=== PATIENT | female | born 1965 | race Caucasian/White ===

== ENCOUNTER 2024-08-13 07:21 | Emergency (ER) | payer BC, OTHER ==
[2024-08-13 07:46] VITALS: TEMP 98.8
--- NOTE | 2024-08-13 07:48 | ERPHSYRPT ---
- History of Present Illness Time Seen by Provider: 08/13/24 07:24 Historian: patient Exam Limitations: no limitations Patient Subjective Stated Complaint: Abdominal pain Triage Nursing Assessment: Abdominal pain Physician History: Patient states that she had a left lower quadrant abdominal pain last week it went away. Today morning it came back. It was 6 out of 10 when it came but right now it is only 3 out of 10. I do not need anything for pain. Patient says that I had a similar episodes 10 years ago. I never saw a doctor. Patient denies any fever or chills. Has mild nausea but no vomiting or diarrhea. No bleeding in the stool or anywhere else. Patient says that I have history of arrhythmia and I take a metoprolol for that. No urinary symptoms. Timing/Duration: today Activities at Onset: none Quality: cramping Abdominal Pain Onset Location: LLQ Pain Radiation: no radiation Severity of Pain-Max: moderate Severity of Pain-Current: mild Modifying Factors: Improves With: nothing Associated Symptoms: nausea, No chest pain, No diaphoresis, No diarrhea, No shortness of breath Previous symptoms: same symptoms as today Allergies/Adverse Reactions: Sulfa (Sulfonamide Antibiotics) Allergy (Verified 08/13/24 07:36) Home Medications: Duloxetine HCl 30 mg [Cymbalta 30 MG Capsule] 60 mg PO DAILY 08/13/24 [History] Metoprolol Succinate 50 mg [Toprol Xl 50 MG] 50 mg PO HS 08/13/24 [ History] - Review of Systems Constitutional: No Fever, No Chills Eyes: No Symptoms Ears, Nose, & Throat: No Symptoms Respiratory: No Cough, No Dyspnea Cardiac: No Chest Pain, No Edema, No Syncope Abdominal/Gastrointestinal: Abdominal Pain, Nausea, No Vomiting, No Diarrhea Genitourinary Symptoms: No Dysuria Musculoskeletal: No Back Pain, No Neck Pain Skin: No Rash Neurological: No Dizziness, No Focal Weakness, No Sensory Changes Psychological: No Symptoms Endocrine: No Symptoms All Other Systems: Reviewed and Negative - Past Medical History Pertinent Past Medical History: Yes - Nursing Vital Signs Nursing Vital Signs: Initial Vital Signs Temperature 98.8 F 08/13/24 07:30 Pulse Rate 70 08/13/24 07:30 Respiratory Rate 18 08/13/24 07:30 Blood Pressure 139/83 08/13/24 07:30 O2 Sat by Pulse Oximetry 97 08/13/24 07:30 Pain Scale Pain Intensity 0 - Physical Exam General Appearance: no apparent distress, alert Eye Exam: PERRL/EOMI, eyes nml inspection Ears, Nose, Throat Exam: normal ENT inspection, pharynx normal, moist mucous membranes Neck Exam: normal inspection, non-tender, supple, full range of motion Respiratory Exam: normal breath sounds, lungs clear, No respiratory distress Cardiovascular Exam: regular rate/rhythm, normal heart sounds Gastrointestinal/Abdomen Exam: soft, normal bowel sounds, No tenderness, No mass, No pulsatile mass, No rebound, No hernia Back Exam: normal inspection, normal range of motion, No CVA tenderness, No vertebral tenderness Extremity Exam: normal inspection, normal range of motion, pelvis stable Neurologic Exam: alert, oriented x 3, cooperative, normal mood/affect, nml cerebellar function, sensation nml, No motor deficits Skin Exam: normal color, warm, dry - Course Nursing assessment & vital signs reviewed: Yes - CT Exams Abdomen/Pelvis CT Interpretation: Other (Constipation. Nothing acute) Ordered Tests: Active Orders 24 hr Category Date Time Status ABDOMEN AND PELVIS W CONTRAST [CT] Stat Exams 08/13/24 07:50 Completed CBC W DIFF Stat Lab 08/13/24 08:15 Completed CMP Stat Lab 08/13/24 08:15 Completed LIPASE Stat Lab 08/13/24 08:15 Completed UA W/RFX UR CULTURE Stat Lab 08/13/24 09:15 Completed Lab/Rad Data: Laboratory Result Diagrams 08/13/24 08:15 08/13/24 08:15 Laboratory Results 08/13/24 08/13/24 08/13/24 Range/Units 09:15 08:15 08:15 WBC 7.7 (3.98-10.04) x10^3/uL RBC 4.63 (3.93-5.22) x10^6/uL Hgb 14.2 (11.2-15.7) g/dL Hct 42.4 (34.1-44.9) % MCV 91.6 (79.4-94.8) fL MCH 30.7 (25.6-32.2) pg MCHC 33.5 (32.2-35.5) g/dL RDW 13.5 (11.7-14.4) % Plt Count 379 H (182-369) x10^3/uL MPV 9.8 (9.4-12.3) fL Gran % 69.6 (34.0-71.1) % Immature Gran % (Auto) 0.8 H (0.001-0.429) % Nucleat RBC Rel Count 0.0 (0.00-0.2) % Eos # (Auto) 0.36 (0.04-0.36) x10^3/uL Immature Gran # (Auto) 0.06 H (0.001-0.031) x10^3u/L Absolute Lymphs (auto) 1.33 (1.18-3.74) x10^3/uL Absolute Monos (auto) 0.50 (0.24-0.86) x10^3/uL Absolute Nucleated RBC 0.00 (0.00-0.012) x10^3u/L Lymphocytes % 17.4 L (19.3-51.7) % Monocytes % 6.5 (4.7-12.5) % Eosinophils % 4.7 (0.7-5.8) % Basophils % 1.0 (0.1-1.2) % Absolute Granulocytes 5.33 (1.56-6.13) x10^3/uL Basophils # 0.08 (0.01-0.08) x10^3/uL Sodium 136 (135-145) mmol/L Potassium 4.1 (3.5-5.1) mmol/L Chloride 105 (98-107) mmol/L Carbon Dioxide 25 (22-30) mmol/L Anion Gap 10.1 (5-15) MEQ/L BUN 15 (7-17) mg/dL Creatinine 0.82 (0.52-1.04) mg/dL Estimated GFR 81.8 ML/MIN Glucose 113 H (74-106) mg/dL Calcium 8.9 (8.4-10.2) mg/dL Total Bilirubin 0.50 (0.2-1.3) mg/dL AST 42 H (14-36) U/L ALT 77 H (0-35) U/L Alkaline Phosphatase 54 (38-126) U/L Serum Total Protein 6.7 (6.3-8.2) g/dL Albumin 3.8 (3.5-5.0) g/dL Lipase 69 (23-300) U/L Urine Color Yellow (Yellow) Urine Appearance Clear (Clear) Urine pH 6.5 (4.6-8.0) Ur Specific [place] <=1.005 (1.005-1.030) Urine Protein Negative (Negative) Urine Glucose (UA) Negative (Negative) mg/dL Urine Ketones Negative (Negative) Urine Blood Negative (Negative) Urine Nitrite Negative (Negative) Urine Bilirubin Negative (Negative) Urine Urobilinogen 0.2 (0.2) mg/dL Ur Leukocyte Esterase Negative (Negative) U Hyaline Cast (Auto) NONE SEEN (0-2) /LPF Urine Microscopic RBC 3-5 (0-5) /HPF Urine Microscopic WBC 0-2 (0-5) /HPF Ur Epithelial Cells None Seen (None Seen) /HPF Urine Bacteria None Seen (None Seen) /HPF Urine Culture Reflexed NO (NO) - Progress Progress: improved Progress Note: 08/13/24 10:29 On the workup, patient is slightly elevated glucose, liver function test and has microscopic hematuria but otherwise nothing acute. CT scan showed constipation. Patient has an appointment to see PCP in the next 4 days. No acute life or limb threatening condition on discharge. Advised patient to take [id number] laxative for her constipation. Patient's present in the ER room with the patient when I was discussing this with the patient. Counseled pt/family regarding: lab results, diagnosis, need for follow-up, rad results Medical Desision Making - Diagnostic Testing Diagnostic test were ordered, analyzed, and reviewed by me: Yes Radiological Interpretation: Reviewed by me - Risk of complications Minimal Risk: Minimal risk of morbidity - Departure Departure Disposition: Home Clinical Impression: Abnormal liver function tests, Hyperglycemia, Hematuria Abdominal pain Qualifiers: Abdominal location: left lower quadrant Qualified Code(s): R10.32 - Left lower quadrant pain Constipation Qualifiers: Constipation type: unspecified constipation type Qualified Code(s): K59.00 - Constipation, unspecified Condition: Stable Critical Care Time: No Referrals: ABELARDO BARKSDALE MD [Primary Care Provider] - Follow up/PCP as directed Instructions: Abdominal pain Additional Instructions: See your doctor as scheduled on Tuesday. Return to the ER for any emergency or new symptoms or worsening symptoms. Take [id number] laxative as needed.
[2024-08-13 07:58] LABS: Absolute Neutrophil Ct (ANC) 5.33 x10^3/uL (1.56-6.13); Basophil (Absolute #) 0.08 x10^3/uL (0.01-0.08); Eosinophil % 4.7 % (0.7-5.8); Eosinophil (Absolute #) 0.36 x10^3/uL (0.04-0.36); Hematocrit 42.4 % (34.1-44.9); Hemoglobin 14.2 g/dL (11.2-15.7); IMMATURE GRAN # 0.06 x10^3u/L (0.001-0.031); IMMATURE GRAN % 0.8 % (0.001-0.429); Lymphocyte (Absolute #) 1.33 x10^3/uL (1.18-3.74); Lymphocytes % 17.4 % (19.3-51.7); Mean Cell Volume 91.6 fL (79.4-94.8); Mean Corpuscular Hemoglobin 30.7 pg (25.6-32.2); Mean Corpuscular Hgb Concent. 33.5 g/dL (32.2-35.5); Mean Platelet Volume 9.8 fL (9.4-12.3); Monocytes % 6.5 % (4.7-12.5); Neutrophil % 69.6 % (34.0-71.1); Platelet Count 379 x10^3/uL (182-369); Red Blood Count 4.63 x10^6/uL (3.93-5.22); Red Cell Distribution Width 13.5 % (11.7-14.4); White Blood Count 7.7 x10^3/uL (3.98-10.04)
[2024-08-13 08:34] LABS: ALBUMIN 3.8 g/dL (3.5-5.0); ANION GAP 10.1 MEQ/L (5-15); BILIRUBIN,TOTAL 0.5 mg/dL (0.2-1.3); Calcium 8.9 mg/dL (8.4-10.2); Creatinine 1 0.82 mg/dL (0.52-1.04); EST GLOMERULAR FILTRATION RATE 81.8 ML/MIN; Potassium 4.1 mmol/L (3.5-5.1); Total Protein 6.7 g/dL (6.3-8.2)
[2024-08-13 09:29] LABS: Appearance Clear (Clear); Bacteria None Seen /HPF (None Seen); Bilirubin Negative (Negative); Blood Negative (Negative); Epithelial Cells None Seen /HPF (None Seen); Glucose, Urine Negative (Negative); Hyaline Casts NONE SEEN /LPF (0-2); Ketones Negative (Negative); Leukocyte Esterase Negative (Negative); Nitrite Negative (Negative); Ph 6.5 (4.6-8.0); Protein,Urine Dip Negative (Negative); Specific Gravity <=1.005 (1.005-1.030); Urobilinogen 0.2 mg/dL (0.2); WBC 0-2 /HPF (0-5)
[2024-08-13 09:37] LABS: ADD URINE CULTURE? NO (NO)
--- NOTE | 2024-08-13 10:08 | XRAY ---
Indication: Abdominal pain. Multiple contiguous axial images obtained through the abdomen and pelvis using 80 cc Isovue 370 contrast. Comparison: None Lung bases demonstrates tiny bibasilar effusions. Heart not enlarged. Noncontrasted stomach and bowel loops appear nonobstructed with normal appendix. Mild diffuse scattered colonic fecal debris greatest in ascending and transverse colon. Previous cholecystectomy. No free fluid/air. Remaining liver, pancreas, spleen, adrenal glands, kidneys, ureters, bladder, uterus, and aorta are normal in CT appearance and attenuation. No pathologic retroperitoneal lymphadenopathy. Osseous structures intact with mild L4-S1 degenerative disc space narrowing with vacuum disc phenomena. Impression: 1. Tiny bibasilar effusions without cardiomegaly. 2. Mild diffuse fecal stasis. 3. L4-S1 degenerative disc disease. 4. Remaining CT abdomen/pelvis with contrast exam is negative.
[2024-08-13 10:31] VITALS: BP 120/70; PULSE 56; RESP 13; O2SAT 100
== END 2024-08-13 10:50 | disposition home or self-care (01) ==
LOC: ED 07:21
DX: R10.32 Left lower quadrant pain (principal); R73.9 Hyperglycemia, unspecified; R31.9 Hematuria, unspecified; K59.00 Constipation, unspecified; R94.5 Abnormal results of liver function studies
CPT/HCPCS: 36000; 36415; 74177; 80053; 81001; 83690; 85025; 99284